=== PATIENT | female | born 1960 ===

== ENCOUNTER 2020-06-14 06:00 | Outpatient (RCR) | payer BC, SELFPAY | END 2020-06-22 23:59 | disposition home or self-care (01) | LOC: MPO 06:00 | PROVIDERS: PCP Family Medicine; Referring Provider Nurse Practitioner Family; Visit Provider Nurse Practitioner Family | DX: I69.398 Other sequelae of cerebral infarction (principal); M79.601 Pain in right arm; R53.1 Weakness | CPT/HCPCS: 97110; 97112; 97116; 97140; 97161; 97166 ==

== ENCOUNTER 2020-06-23 06:00 | Outpatient (RCR) | payer BC, SELFPAY | END 2020-07-23 23:59 | disposition home or self-care (01) | LOC: MPO 06:00 | PROVIDERS: PCP Family Medicine; Referring Provider Nurse Practitioner Family; Visit Provider Nurse Practitioner Family | DX: I69.30 Unspecified sequelae of cerebral infarction (principal); M79.601 Pain in right arm; R53.1 Weakness | CPT/HCPCS: 97035; 97110; 97112; 97116; 97140; 97530 ==

== ENCOUNTER 2020-07-24 06:00 | Outpatient (RCR) | payer BC, SELFPAY | END 2020-08-22 23:59 | disposition home or self-care (01) | LOC: MPO 06:00 | PROVIDERS: PCP Family Medicine; Referring Provider Nurse Practitioner Family; Visit Provider Nurse Practitioner Family | DX: I69.351 Hemiplegia and hemiparesis following cerebral infarction affecting right dominant side (principal) | CPT/HCPCS: 97110; 97112; 97116; 97140 ==

== ENCOUNTER 2020-10-10 06:00 | Outpatient (RCR) | payer BC, SELFPAY | END 2020-10-23 23:59 | disposition home or self-care (01) | LOC: MOT 06:00 | PROVIDERS: PCP Family Medicine; Referring Provider Orthopaedic Surgery Foot and Ankle Surgery; Visit Provider Orthopaedic Surgery Foot and Ankle Surgery | DX: Z98.890 Other specified postprocedural states (principal) | CPT/HCPCS: 97032; 97110; 97140; 97166 ==

== ENCOUNTER 2020-10-24 06:00 | Outpatient (RCR) | payer BC, SELFPAY | END 2020-11-20 23:59 | disposition home or self-care (01) | LOC: MOT 06:00 | PROVIDERS: PCP Family Medicine; Referring Provider Orthopaedic Surgery Foot and Ankle Surgery; Visit Provider Orthopaedic Surgery Foot and Ankle Surgery | DX: Z98.890 Other specified postprocedural states (principal) | CPT/HCPCS: 97032; 97110; 97140 ==

== ENCOUNTER 2020-11-21 06:00 | Outpatient (RCR) | payer BC, OTHER, SELFPAY | END 2020-12-21 23:59 | disposition home or self-care (01) | LOC: MOT 06:00 | PROVIDERS: PCP Family Medicine; Referring Provider Orthopaedic Surgery Foot and Ankle Surgery; Visit Provider Orthopaedic Surgery Foot and Ankle Surgery | DX: Z98.890 Other specified postprocedural states (principal) | CPT/HCPCS: 97110; 97140 ==